=== PATIENT | male | born 1965 | race Caucasian/White ===

== ENCOUNTER 2024-05-30 09:08 | Day surgery (SDC) | payer MEDICARE, BC ==
[~2024-05-30] VITALS: Ht 170.2 cm; Wt 94.0 kg
[~2024-05-30 09:08] MED LIST: Lactated Ringer's 1,000 ML IV ONE; PROAIR DIGIHAL90 MCG INH; propofoL 50 ML IV ONE
[2024-05-30] MEDS ORDERED: ASPI81CH (09:29)
[2024-05-30] MEDS ORDERED: LISI20 (09:32)
[2024-05-30] MEDS ORDERED: ATOR40TA (09:32)
[2024-05-30] MEDS ORDERED: SILD25T (09:33)
[2024-05-30] MEDS ORDERED: Lactated Ringer's 1,000 ML IV ONE (10:45)
[2024-05-30 12:27] VITALS: BP 110/62
== END 2024-05-30 11:55 | disposition home or self-care (01) ==
LOC: ORSCSDS 09:08
PROVIDERS: Internal Medicine Gastroenterology
PROC: 0DBL8ZX Excision of Transverse Colon, Via Natural or Artificial Opening Endoscopic, Diagnostic (ICD-10-PCS; principal; 2024-05-30 10:15)
DX: Z12.11 Encounter for screening for malignant neoplasm of colon (principal); Z86.010 Personal history of colon polyps; D12.3 Benign neoplasm of transverse colon; E11.9 Type 2 diabetes mellitus without complications; K58.0 Irritable bowel syndrome with diarrhea; J45.909 Unspecified asthma, uncomplicated; Z79.82 Long term (current) use of aspirin; Z79.84 Long term (current) use of oral hypoglycemic drugs; Z79.899 Other long term (current) drug therapy
CPT/HCPCS: 82947; 88305; J2704; J7120

== ENCOUNTER → 2025-03-13 | Outpatient (CLI) | payer MEDICARE, BC ==
[~2025-03-13] MED LIST changes: +ASPI81CH; +ATOR40TA; +LISI20; -Lactated Ringer's 1,000 ML IV ONE; +SILD25T; -propofoL 50 ML IV ONE
[2025-03-13 21:06] LABS: Microalb/Creat Ratio UR, Rand Unable to Calculate mg/g (0.000-30.000); Microalbumin, Random Urine <5.000 mg/L (0.000-20.000)
== END ==
LOC: LAB 08:30 → LAB SHORT 08:30
PROVIDERS: Physician Assistant
DX: E11.9 Type 2 diabetes mellitus without complications (principal)
CPT/HCPCS: 82043; 82570